=== PATIENT | female | born 1945 | race Caucasian/White ===

== ENCOUNTER 2019-05-20 18:31 | Emergency (ER) | payer MEDICARE ==
[~2019-05-20] VITALS: Ht 168.9 cm; Wt 72.7 kg
[2019-05-20 18:34] VITALS: Ht 168.9 cm; Wt 72.7 kg
[2019-05-20] MEDS ORDERED: NORVASC10 MG PO (18:53)
[2019-05-20] MEDS ORDERED: GLUCOPHAGE1000 MG PO (18:53)
[2019-05-20] MEDS ORDERED: ACCUPRIL40 MG PO (18:53)
[2019-05-20] MEDS ORDERED: TOPROL XL100 MG PO (18:54)
[2019-05-20] MEDS ORDERED: ZOCOR20 MG PO (18:54)
[2019-05-20] MEDS ORDERED: CELEXA20 MG PO (18:54)
[2019-05-20] MEDS ORDERED: HYDROCHLOROTHIA25 MG PO (18:54)
[2019-05-20] MEDS ORDERED: OXAZEPAM (18:56)
[2019-05-20] MEDS ORDERED: PRESERVISION (18:56)
[2019-05-20] MEDS ORDERED: PEPCID AC20 MG PO (18:57)
[2019-05-20] MEDS ORDERED: POTASSIUM99 M1 PO (18:57)
[2019-05-20] MEDS ORDERED: VITAMIN D31000 UNIT PO (18:57)
[2019-05-20 19:18] LABS: BASOPHILS 0.2 % (0-2); EOSINOPHILS 0 % (0-7); HEMATOCRIT 36.3 % (36.0-48.0); HEMOGLOBIN 11.8 g/dL (12-16); IMMATURE GRANULOCYTES 0.7 % (0-5); LYMPHOCYTES 5.9 % (15-50); MCH 27.9 pg (26.0-34.0); MCHC 32.5 g/dL (31.0-37.0); MCV 85.8 fL (80.0-100.0); MEAN PLATELET VOLUME 9.4 fL (7.4-10.4); MONOCYTES 0.4 % (2-11); NEUTROPHILS 92.8 % (40-80); PLATELET COUNT 200 10x3/uL (130-400); RBC 4.23 10x6/uL (4.00-5.40); RDW 14.7 % (11.5-14.5); WBC 4.6 10x3/uL (4.8-10.8)
[2019-05-20 19:33] LABS: ALKALINE PHOSPHATASE 108 U/L (46-116); ALT (SGPT) 20 U/L (10-68); BILIRUBIN - TOTAL 0.94 mg/dL (0.2-1.3); CALC OSMOLALITY 284 mosm/kg (275-300); CALCIUM 8.6 mg/dL (8.5-10.1); CARBON DIOXIDE 28.5 mmol/L (21.0-32.0); CHLORIDE - SERUM 102 mmol/L (98-107); CREATININE - SERUM 1.1 mg/dL (0.6-1.3); GLUCOSE 147 mg/dL (74-106); POTASSIUM - SERUM 3.3 mmol/L (3.5-5.1); PROTEIN - SERUM 6.6 g/dL (6.4-8.2); SODIUM 140 mmol/L (136-145); UREA NITROGEN 20 mg/dL (7-18); eGFR NON AFRICAN AMERICAN 52 mL/min (90-120)
[2019-05-20 19:36] LABS: AMYLASE - SERUM 43 U/L (25-115); LIPASE 85 U/L (73-393); TROPONIN-I < 0.017 ng/mL (0.000-0.060)
[2019-05-20 20:43] LABS: APPEARANCE CLEAR (CLEAR); BILIRUBIN NEGATIVE (NEGATIVE); COLOR YELLOW (YELLOW); GLUCOSE 100 mg/dL (NEGATIVE); KETONE NEGATIVE (NEGATIVE); NITRITE POSITIVE (NEGATIVE); PROTEIN TRACE mg/dL (NEGATIVE); UROBILINOGEN NORMAL (NORMAL)
[2019-05-20 20:44] LABS: BACTERIA MANY /hpf (NONE SEEN); EPITHELIAL CELLS 0-5 /hpf (0-5)
[2019-05-20] MEDS ORDERED: FLOMAX0.4 MG PO (21:18)
[2019-05-20] MEDS ORDERED: HYDROCODON-ACE1 EA10 PO (21:18)
[2019-05-20] MEDS ORDERED: ZOFRAN ODT4 MG/UDTAB PO (21:18)
[2019-05-20 21:39] VITALS: BP 114/39
== END 2019-05-20 21:40 | disposition home or self-care (01) ==
LOC: D.ER 18:31
PROVIDERS: Emergency Medicine
DX: N20.0 Calculus of kidney (principal); N39.0 Urinary tract infection, site not specified

== ENCOUNTER 2019-05-21 18:47 | Emergency (ER) | payer MEDICARE, OTHER ==
[~2019-05-21] VITALS: Ht 168.9 cm; Wt 72.7 kg
[~2019-05-21 18:47] MED LIST: ACCUPRIL40 MG PO; CELEXA20 MG PO; FLOMAX0.4 MG PO; GLUCOPHAGE1000 MG PO; HYDROCHLOROTHIA25 MG PO; HYDROCODON-ACE1 EA10 PO; NORVASC10 MG PO; OXAZEPAM; PEPCID AC20 MG PO; POTASSIUM99 M1 PO; PRESERVISION; TOPROL XL100 MG PO; VITAMIN D31000 UNIT PO; ZOCOR20 MG PO; ZOFRAN ODT4 MG/UDTAB PO
[2019-05-21 19:03] VITALS: Ht 168.9 cm; Wt 72.7 kg
[2019-05-21 20:05] LABS: BASOPHILS 0.2 % (0-2); EOSINOPHILS 0.2 % (0-7); HEMATOCRIT 33.8 % (36.0-48.0); HEMOGLOBIN 11.2 g/dL (12-16); IMMATURE GRANULOCYTES 5.7 % (0-5); LYMPHOCYTES 4.5 % (15-50); MCH 28.2 pg (26.0-34.0); MCHC 33.1 g/dL (31.0-37.0); MCV 85.1 fL (80.0-100.0); MEAN PLATELET VOLUME 9.8 fL (7.4-10.4); MONOCYTES 5.6 % (2-11); NEUTROPHILS 83.8 % (40-80); PLATELET COUNT 146 10x3/uL (130-400); RBC 3.97 10x6/uL (4.00-5.40); RDW 15.2 % (11.5-14.5); WBC 18.6 10x3/uL (4.8-10.8)
[2019-05-21 20:13] LABS: APTT 37.8 SECONDS (22.8-39.4); INR 1.47 (0.85-1.17); PROTIME 17.3 SECONDS (11.6-15.0)
[2019-05-21 20:20] LABS: ALBUMIN 2.5 g/dL (3.4-5.0); BILIRUBIN - TOTAL 1.09 mg/dL (0.2-1.3); CALCIUM 8.2 mg/dL (8.5-10.1); CARBON DIOXIDE 26.7 mmol/L (21.0-32.0); PROTEIN - SERUM 6.2 g/dL (6.4-8.2)
[2019-05-21 20:26] LABS: ANION GAP 15.6 mmol/L (8-16); CREATININE - SERUM 2.8 mg/dL (0.6-1.3); POTASSIUM - SERUM 4.3 mmol/L (3.5-5.1)
[2019-05-21 20:42] LABS: TROPONIN-I 0.448 ng/mL (0.000-0.060)
[2019-05-21 21:21] VITALS: BP 86/40
== END 2019-05-21 21:23 | disposition short-term general hospital (02) ==
LOC: D.ER 18:47
PROVIDERS: Family Medicine
DX: N20.1 Calculus of ureter (principal); N17.9 Acute kidney failure, unspecified; I21.4 Non-ST elevation (NSTEMI) myocardial infarction; N39.0 Urinary tract infection, site not specified

== ENCOUNTER 2020-12-03 06:59 | Day surgery (SDC) | payer OTHER ==
[~2020-12-03] VITALS: Ht 167.6 cm; Wt 79.4 kg
[~2020-12-03 06:59] MED LIST changes: +CARDURA4 MG PO; +FLUTICASONE PRO16 GM NASAL; +LISINOPRIL40 MG PO; +MERIBIN5 MG PO; +METOPROLOL TART50 MG PO; -OXAZEPAM; +OXAZEPAM PO; +PACERONE200 MG PO; +PIOGLITAZONE15 MG PO; -PRESERVISION; +PRESERVISION PO; +PROTONIX40 MG PO; -VITAMIN D31000 UNIT PO; +VITAMIN D325 MC1 PO; +XARELTO20 MG PO; +ZETIA10 MG PO; +ZOLOFT50 MG PO
[2020-12-03 07:26] LABS: BASOPHILS 0.5 % (0-2); HEMATOCRIT 32.3 % (36.0-48.0); HEMOGLOBIN 10.3 g/dL (12-16); IMMATURE GRANULOCYTES 0.4 % (0-5); LYMPHOCYTE ABS# 1.72 10x3/uL (1.18-3.74); LYMPHOCYTES 30.3 % (15-50); MCH 28.4 pg (26.0-34.0); MCHC 31.9 g/dL (31.0-37.0); MEAN PLATELET VOLUME 8.5 fL (7.4-10.4); MONOCYTES 9.7 % (2-11); NEUTROPHIL ABS# 3.18 10x3/uL (1.56-6.13); NEUTROPHILS 56.1 % (40-80); PLATELET COUNT 207 10x3/uL (130-400); RBC 3.63 10x6/uL (4.00-5.40); RDW 14.8 % (11.5-14.5); WBC 5.7 10x3/uL (4.8-10.8)
[2020-12-03 07:51] LABS: ANION GAP 10.6 mmol/L (8-16); CALCIUM 8.8 mg/dL (8.5-10.1); CARBON DIOXIDE 27.3 mmol/L (21.0-32.0); CREATININE - SERUM 1.3 mg/dL (0.6-1.3); POTASSIUM - SERUM 3.9 mmol/L (3.5-5.1)
[2020-12-03 08:32] VITALS: BP 192/68; Ht 167.6 cm; Wt 79.4 kg
[2020-12-03] MEDS ORDERED: MEDROL DOSE PACK4 MG PO (12:03)
[2020-12-03] MEDS ORDERED: HYDROCODON-ACE1 EA10 PO (12:03)
--- NOTE | 2020-12-03 13:37 | NUR ---
5781 ANESTHESIA CALLED TO NOTIFY THAT PT IS SHAKY AND NERVOUS
--- NOTE | 2020-12-03 13:49 | NUR ---
1345 DAUGHTER CALLED WITH AN UPDATE
--- NOTE | 2020-12-03 14:17 | NUR ---
1410 ANESTHESIA NOTIFIED OF SHAKYNESS TO HANDS. SCOP PATCH REMOVED.ASSISTED ON BEDPAN
--- NOTE | 2020-12-03 14:22 | NUR ---
1400 BS 177. PT A DIABETIC. D5W REMOVED AND NS HANGING RECIEVED 50ML D5W
--- NOTE | 2020-12-03 14:41 | NUR ---
1430 ASSISTED UP WITH NURSE X2 VOIDED LARGE AMT. ASSISTED BACK TO BED AND EATING GRAHM CRACKERS AND PEANUTE BUTTER. DAUGHTER UPDATED ON PROGRESS
--- NOTE | 2020-12-03 14:44 | NUR ---
1425 B/P SITTING 153/57 HR 74
--- NOTE | 2020-12-03 16:13 | NUR ---
1600 IV REMOVED AND INSTRUCTION GIVEN. 1610 PT D/C
--- NOTE | 2020-12-10 08:56 | OP ---
PATIENT NAME: ZAINAB QUINN MEDICAL RECORD: [id number] :47 LOCATION:[facility] ADMISSION DATE: SURGEON: LEO DURAN MD DATE OF OPERATION: 12/03/2020 PREOPERATIVE DIAGNOSIS: Lumbar spinal stenosis with foraminal stenosis, L4-L5, right and L4-L5, left. POSTOPERATIVE DIAGNOSIS: Lumbar spinal stenosis with foraminal stenosis, L4-L5, right and L4-L5, left. PROCEDURE: L4-L5 right lumbar laminectomy, medial facetectomy, and foraminotomy with left sublaminar decompression at L4-L5 and left L4-L5 foraminotomy. SURGEON: Leo Duran MD DESCRIPTION OF PROCEDURE: After induction of general endotracheal anesthesia, the patient was rolled prone on the Lobo frame. The lumbar spine was prepped and draped in the usual sterile fashion. Fluoroscopic x-ray and spinal needle localized the L4-L5 interspace on the right side. After infiltration of 1:100,000 epinephrine with 1% lidocaine, stab incision were created with a #11 blade. A series of dilators was used to advance a METRx retractor over the L4-5 interspace on the right side. Level was confirmed with fluoroscopic x-ray. A microscope and Midas Jose Luis drill were used to perform a laminectomy, medial facetectomy, and foraminotomy at L4-L5 on the right. Hypertrophied ligamentum flavum was removed with Cloward rongeurs. Next, the spinous process at L4 was undermined with the Midas Jose Luis drill. The retractor was tilted to the opposite side and hypertrophied ligamentum flavum was removed with Cloward rongeurs at L4-L5 on the left. A foraminotomy was carried out at L4-L5 on the left. Following this, there was excellent decompression of the L4 and L5 nerve roots on both sides. Meticulous hemostasis was maintained throughout the wound. The wound was irrigated with copious amounts of Ancef irrigant solution. The retractor was removed. The fascia was closed with 2-0 Vicryl suture. Subdermal layers closed with 3-0 Vicryl suture and the skin was closed with ramila. A sterile dressing was applied to the wound. The patient was awakened in good condition and taken to recovery. All counts were reported as correct. ESTIMATED BLOOD LOSS: Minimal. TRANSINT:[id number] Voice Confirmation ID: [id number] DOCUMENT ID: [id number] LEO DURAN MD at 0856 CC: [id number] DICTATION DATE: 12/09/20 1629 GEOLOGICAL SCOUT: 12/09/20 2255 [facility] 12/03/20 [place] [id number] [place] [id number]
== END 2020-12-03 16:10 | disposition home or self-care (01) ==
LOC: D.OPS 06:59
PROVIDERS: Anesthesiology; ATTEND Neurological Surgery
DX: M48.061 Spinal stenosis, lumbar region without neurogenic claudication (principal); M51.26 Other intervertebral disc displacement, lumbar region; M54.16 Radiculopathy, lumbar region

== ENCOUNTER → 2021-02-15 09:19 | Outpatient (CLI) | payer MEDICARE ==
[2020-12-03 08:32] VITALS: BMI 28.3
[~2021-02-15 09:19] MED LIST changes: +MEDROL DOSE PACK4 MG PO
[2021-02-15 10:04] LABS: CREATININE - SERUM 1.4 mg/dL (0.6-1.3)
== END | disposition home or self-care (01) ==
LOC: D.CT 09:15
PROVIDERS: ATTEND Internal Medicine Gastroenterology
DX: R93.3 Abnormal findings on diagnostic imaging of other parts of digestive tract (principal)

== ENCOUNTER → 2021-02-25 09:25 | Outpatient (CLI) | payer MEDICARE ==
[2020-12-03 08:32] VITALS: BMI 28.3
== END | disposition home or self-care (01) ==
LOC: D.RAD 09:25
PROVIDERS: ATTEND Internal Medicine Gastroenterology
DX: D64.9 Anemia, unspecified (principal)